=== PATIENT | male | born 1960 | race Caucasian/White ===

== ENCOUNTER 2016-09-19 07:57 | Emergency (ER) | payer OTHER ==
[~2016-09-19] VITALS: Ht 185.4 cm; Wt 68.2 kg
[2016-09-19] MEDS ORDERED: ULTRAM 50MG TAB50 MG PO (08:02)
[2016-09-19] MEDS ORDERED: NORCO 325 MG-51 TAB PO (08:03)
[2016-09-19 09:01] VITALS: BP 126/82; PULSE 69; TEMP 97.8
== END 2016-09-19 09:02 | disposition home or self-care (01) ==
LOC: COL.ER 07:57
DX: M54.6 Pain in thoracic spine (principal); W00.0XXA Fall on same level due to ice and snow, initial encounter

== ENCOUNTER 2021-01-21 22:38 | Emergency (ER) | payer OTHER ==
[~2021-01-21] VITALS: Ht 188 cm; Wt 72.7 kg
[~2021-01-21 22:38] MED LIST: NORCO 325 MG-51 TAB PO; ULTRAM 50MG TAB50 MG PO
[2021-01-21 23:36] LABS: BASO # 0.1 (0.0-0.2); BASO % 0.4 % (0.0-2.0); EOS # 0.2 (0.0-0.7); EOS % 1.7 % (0-4.0); GRAN # 10.6 (1.4-6.5); GRAN % 83.3 % (42.2-75.2); HEMATOCRIT 43.8 % (42.0-52.0); HEMOGLOBIN 14.9 g/dl (13.5-18.0); LYMPH # 1.3 (1.2-3.4); LYMPH % 9.9 % (20.0-51.0); MEAN CELL VOLUME 88 fl (80.0-100.0); MEAN CORPUSCULAR HEMOGLOBIN 30 pg (27.0-31.0); MEAN CORPUSCULAR HGB CONC 34 g/dl (33.0-37.0); MEAN PLATELET VOLUME 11.3 fl (7.4-10.4); MONO # 0.5 (0.1-0.6); MONO % 4.1 % (1.7-9.3); PLATELET COUNT 157 K/mm3 (130-400); RED BLOOD COUNT 4.98 M/mm3 (4.20-5.60); REDCELL DISTRIBUTION WIDTH-CV 12.2 % (11.5-14.5)
[2021-01-21 23:43] LABS: ALANINE AMINOTRANSFERASE 17 U/L (4-49); ALBUMIN 4.5 gm/dL (3.5-5.0); ALCOHOL(ethanol),MEDICAL 162 mg/dL; ALKALINE PHOSPHATASE 56 U/L (50-136); ANION GAP 9 mmol/L (7-16); AST,SGOT 28 U/L (15-37); BILIRUBIN,TOTAL 0.6 mg/dL (0.0-1.0); BLOOD UREA NITROGEN 14 mg/dL (9-20); CALCIUM 8.7 mg/dL (8.4-10.2); CARBON DIOXIDE 26 mmol/L (22-30); CHLORIDE 97 mmol/L (98-107); CREATINE KINASE 90 U/L (55-170); CREATININE, serum 0.82 (0.66-1.25); GLUCOSE 101 mg/dL (74-106); POTASSIUM 4.4 mmol/L (3.4-5.0); SODIUM 132 mmol/L (137-145); TOTAL PROTEIN 7.4 gm/dL (6.4-8.2)
[2021-01-21 23:55] LABS: TROPONIN-I < 0.012 ng/mL (0.000-0.035)
[2021-01-22 01:45] VITALS: BP 116/78; PULSE 74; TEMP 97.8
== END 2021-01-22 01:45 | disposition home or self-care (01) ==
LOC: COL.ER 22:38
PROVIDERS: Emergency Medicine
DX: E86.0 Dehydration (principal); R78.0 Finding of alcohol in blood; Y90.6 Blood alcohol level of 120-199 mg/100 ml
CPT/HCPCS: J7030